=== PATIENT | female | born 1975 | race Caucasian/White ===

== ENCOUNTER 2024-03-24 09:09 | Emergency (ER) | payer SELFPAY ==
[~2024-03-24] VITALS: Ht 170.2 cm; Wt 70.0 kg
[2024-03-24 09:16] VITALS: BP 186/114; PULSE 75; RESP 18; O2SAT 96
[2024-03-24 11:41] VITALS: TEMP 97.5
== END 2024-03-24 11:44 | disposition home or self-care (01) ==
LOC: ER 09:10
DX: S20.211A Contusion of right front wall of thorax, initial encounter (principal); Z88.2 Allergy status to sulfonamides; W19.XXXA Unspecified fall, initial encounter; Y93.89 Activity, other specified; Y92.89 Other specified places as the place of occurrence of the external cause; Y99.8 Other external cause status
CPT/HCPCS: 71046; 99283